=== PATIENT | male | born 1995 | race Caucasian/White ===

== ENCOUNTER 2017-07-20 00:33 | Emergency (ER) | payer OTHER ==
[~2017-07-20] VITALS: Ht 170.2 cm; Wt 68.0 kg
[2017-07-20] MEDS ORDERED: OSELB75 PO (00:52)
[2017-07-20 01:06] LABS: INFLUENZA A ANTIGEN None Detected (None Detect)
[2017-07-20 01:14] VITALS: BP 132/65
[2017-07-20] MEDS ORDERED: TESSALON PERLE100 MG PO (23:53)
[2017-07-20] MEDS ORDERED: PROMETHAZINE V473 ML PO (23:53)
[2017-07-20] MEDS ORDERED: MEDROLDOSEPACK PO (23:53)
[2017-07-20] MEDS ORDERED: PROAIR HFA8.5 GM INH (23:53)
== END 2017-07-20 01:15 | disposition home or self-care (01) ==
LOC: M.ERS 00:33
PROVIDERS: Emergency Medicine Emergency Medical Services
DX: J11.1 Influenza due to unidentified influenza virus with other respiratory manifestations (principal)

== ENCOUNTER 2017-07-20 23:05 | Emergency (ER) | payer OTHER ==
[~2017-07-20] VITALS: Ht 170.2 cm; Wt 68.0 kg
[~2017-07-20 23:05] MED LIST: OSELB75 PO
[2017-07-20] MEDS ORDERED: PROAIR HFA8.5 GM INH (23:53)
[2017-07-20] MEDS ORDERED: MEDROLDOSEPACK PO (23:53)
[2017-07-20] MEDS ORDERED: PROMETHAZINE V473 ML PO (23:53)
[2017-07-20] MEDS ORDERED: TESSALON PERLE100 MG PO (23:53)
[2017-07-21] VITALS: BP 139/72
== END 2017-07-21 00:01 | disposition home or self-care (01) ==
LOC: M.ERS 23:05
DX: J11.1 Influenza due to unidentified influenza virus with other respiratory manifestations (principal); F17.210 Nicotine dependence, cigarettes, uncomplicated